=== PATIENT | female | born 1975 | race Caucasian/White ===

== ENCOUNTER → 2018-04-26 | Outpatient (CLI) | payer OTHER ==
[~2018-04-26] MED LIST: DIPH-740 PO; ETHY1TAB4 PO; FEXO180T87 PO; TEL40 PO
== END ==
LOC: LAB 10:14
PROVIDERS: ATTEND Surgery
DX: D17.1 Benign lipomatous neoplasm of skin and subcutaneous tissue of trunk (principal)
CPT/HCPCS: 88305